=== PATIENT | male | born 1960 | race African-American/Black ===

== ENCOUNTER 2016-06-22 07:36 | Inpatient (IN) ==
[~2016-06-22 07:36] MED LIST: ADENOCARD ONE; CARDIZEM ONE
[2016-06-22] MEDS ORDERED: NS 1,000 ML ONE (07:39)
[2016-06-22] MEDS ORDERED: CARDIZEM IV ONE (07:46)
--- NOTE | 2016-06-22 07:48 | EKG Report ---
Test Performed on : 06/22/2016 07:41:48 AM Test Reason : Chest Pain Blood Pressure : / mmHG Vent. Rate : 105 BPM Atrial Rate : 210 BPM P-R Int : 000 ms QRS Dur : 124 ms QT Int : 350 ms P-R-T Axes : 103 -64 116 degrees QTc Int : 462 ms Atrial flutter. with 2:1 AV conduction. Left anterior fascicular block Left ventricular hypertrophy with QRS widening and repolarization abnormality Cannot rule out Septal infarct , age undetermined Marked ST abnormality, possible anterior subendocardial injury Abnormal ECG When compared with ECG of 22-JUN-2016 07:37, (Unconfirmed) Atrial flutter. has replaced Wide QRS tachycardia. Vent. rate has decreased BY 82 BPM Unconfirmed Result
--- NOTE | 2016-06-22 07:50 | EKG Report ---
Test Performed on : 06/22/2016 07:37:34 AM Test Reason : p rhythm conversion Blood Pressure : / mmHG Vent. Rate : 187 BPM Atrial Rate : 058 BPM P-R Int : 000 ms QRS Dur : 122 ms QT Int : 280 ms P-R-T Axes : 000 -66 112 degrees QTc Int : 494 ms Wide QRS tachycardia. with occasional premature ventricular complexes. Left axis deviation Left ventricular hypertrophy with QRS widening and repolarization abnormality Cannot rule out Septal infarct , age undetermined Marked ST abnormality, possible anterior subendocardial injury Abnormal ECG No previous ECGs available Unconfirmed Result
--- NOTE | 2016-06-22 07:52 | PROVIDER DOCUMENTATION ---
HPI-Chest Pain - General Chief Complaint: Chest Pain Stated Complaint: SVT Time Seen by Provider: 06/22/16 07:43 Source: EMS Allergies/Adverse Reactions: Patient Allergies Allergy/AdvReac Type Severity Reaction Status Date / Time naproxen Allergy Intermediate ABDOMINAL Verified 06/22/16 08:09 PAIN wild dobbins AdvReac Intermediate RASH Verified 06/22/16 08:09 cherries AdvReac Intermediate RASH Uncoded 06/22/16 08:09 Home Medications: Home Medication List Medication Instructions Recorded Confirmed Last Taken Type Hydrocodone Bit/Acetaminophen 1 each PO Q4H PRN 06/22/16 06/22/16 Unknown History [Hydrocodon-Acetaminoph 7.5-325] - History of Present Illness-CP Nature of Presenting Problem: was @ dialysis, had just gotten heparin, had onset of sharp, burning substernal CP, palpitations, did not radiate. Did have SOB, sl nausea. EMS found him to be in SVT, with ventric rate of 90. They were unable to start IV. On arrival, pain was still level of 5, was given Cardizem 20 mg, converted to a flutter, rate of 105. CP ceased Location: reports: substernal Chest Pain Radiation: reports: no radiation Quality of Pain: reports: burning, sharp Onset/Duration: abrupt Timing: still present Context/Activities at Onset: reports: none Modifying Factors: improves with: nothing Associated Symptoms: reports: nausea, shortness of breath. denies: diaphoresis Nitro Today/Relief: no nitro taken today Aspirin Treatment Today: no aspirin today Similar Symptoms Previously?: No Recently Seen Here or By Another Healthcare Provider: Yes (was @ dialysis) Review of Systems - Adult - REVIEW OF SYSTEMS - ADULT Constitutional: reports: no symptoms reported Eyes: reports: no symptoms reported Ears, Nose, Mouth & Throat: reports: no symptoms reported Cardiovascular: reports: see HPI, palpitations Respiratory: reports: see HPI Gastrointestinal: reports: see HPI Genitourinary: reports: no symptoms reported Musculoskeletal: reports: no symptoms reported Integumentary: reports: no symptoms reported Neurological: reports: no symptoms reported Psychiatric: reports: no symptoms reported Endocrine: reports: no symptoms reported Hematologic/Lymphatic: reports: no symptoms reported Allergic/Immunologic: reports: no symptoms reported Past History - Adult - PAST MEDICAL HISTORY-ADULT Review of Records: reports: Medications Reviewed Major Childhood Illnesses: reports: denies history Cardiovascular: reports: HTN Respiratory: reports: asthma, sleep apnea Gastrointestinal: reports: denies history Obstetrical/Gynecological: reports: denies history Genitourinary: reports: dialysis (in past--none now), kidney disease (with h/o failure due to multiple myeloma) Musculoskeletal: reports: denies history Neurological: reports: denies history Endocrine/Immune: reports: Myeloma Other Conditions: reports: denies history - PRIOR SURGERIES/PROCEDURES Surgical/Procedure History: reports: other (stem cell transplant) - SOCIAL HISTORY Smoking: denies Physical Exam-General - PHYSICAL EXAM-ADULT Exam Limited by: was done after conversion Initial Vital Signs Reviewed: Yes - CONSTITUTIONAL General Appearance: appears well, alert, no apparent distress - EYES Eyes: PERRL/EOMI, pink conjunctivae - HEAD, EARS, NOSE, MOUTH & THROAT HENMT: moist mucous membranes, normal ENT inspection, pharynx normal - NECK Neck: full range of motion, supple - RESPIRATORY Respiratory: lungs clear, normal breath sounds, no respiratory distress, no accessory muscle use - CARDIOVASCULAR Cardiovascular: normal peripheral pulses, regular rate, rhythm, no edema - GASTROINTESTINAL (ABDOMEN) Abdominal Exam: non tender, soft - MUSCULOSKELETAL Back Exam: normal inspection, no CVA tenderness, no vertebral tenderness Extremity: normal range of motion, non-tender, normal gait - SKIN Integumentary: normal color, normal turgor, warm/dry - NEUROLOGIC Neurologic: project technician II-XII nml as tested, grossly normal, no motor/sensory deficits - PSYCHIATRIC Psych/Mental Status: normal mood/affect, normal thought content, normal thought process, oriented x 3 Progress - PLAN OF CARE/RESULTS Progress/Plan/Lab Results: Vital Signs - 8 hr 06/22/16 07:30 06/22/16 08:06 06/22/16 08:21 Temperature 97.9 F Pulse Rate 191 H 136 H 136 H Respiratory Rate 23 27 H 23 Blood Pressure 117/88 125/65 121/55 O2 Sat by Pulse Oximetry 98 100 99 06/22/16 08:48 06/22/16 09:27 06/22/16 09:54 Temperature Pulse Rate 109 H 133 H 109 H Respiratory Rate 18 18 20 Blood Pressure 122/66 130/69 111/70 O2 Sat by Pulse Oximetry 98 99 98 06/22/16 10:16 06/22/16 10:29 Temperature Pulse Rate 106 H 110 H Respiratory Rate 20 22 Blood Pressure 126/79 128/75 O2 Sat by Pulse Oximetry 99 Laboratory Results - last 24 hr 06/22/16 06/22/16 06/22/16 07:54 07:54 07:54 WBC 1.85 L RBC 2.13 L Hgb 7.4 L Hct 23.1 L MCV 108.5 H MCH 34.7 H MCHC 32.0 L RDW Std Deviation 16.6 H Plt Count 36 L* MPV 11.0 H Immature Gran % (Auto) 0.0 Neut % (Auto) 58.4 Lymph % (Auto) 23.2 [place] % (Auto) 15.7 H Eos % (Auto) 2.2 Baso % (Auto) 0.5 Immature Gran # (Auto) 0.00 Neut # (Auto) 1.08 L Lymph # (Auto) 0.43 L [place] # (Auto) 0.29 Eos # (Auto) 0.04 Baso # (Auto) 0.01 PT 16.2 H INR 1.50 PTT (Actin FS) 30.5 Sodium 135 L Potassium 4.9 Chloride 92 L Carbon Dioxide 21 L Anion Gap 22 BUN 92 H Creatinine 14.0 H* Estimated GFR/1.73 m2 4 BUN/Creatinine Ratio 7 Glucose 84 Calculated Osmolality 298 Calcium 9.6 Phosphorus 9.5 H Magnesium 2.1 Total Bilirubin 0.37 AST 58 H ALT 46 H Alkaline Phosphatase 50 Creatine Kinase 1343 H Creatine Kinase Index 1.5 CK-MB (CK-2) 19.89 H Troponin T Total Protein 7.7 Albumin 3.6 Globulin 4.1 Albumin/Globulin Ratio 0.9 06/22/16 07:54 WBC RBC Hgb Hct MCV MCH MCHC RDW Std Deviation Plt Count MPV Immature Gran % (Auto) Neut % (Auto) Lymph % (Auto) [place] % (Auto) Eos % (Auto) Baso % (Auto) Immature Gran # (Auto) Neut # (Auto) Lymph # (Auto) [place] # (Auto) Eos # (Auto) Baso # (Auto) PT INR PTT (Actin FS) Sodium Potassium Chloride Carbon Dioxide Anion Gap BUN Creatinine Estimated GFR/1.73 m2 BUN/Creatinine Ratio Glucose Calculated Osmolality Calcium Phosphorus Magnesium Total Bilirubin AST ALT Alkaline Phosphatase Creatine Kinase Creatine Kinase Index CK-MB (CK-2) Troponin T 0.799 H* Total Protein Albumin Globulin Albumin/Globulin Ratio Orders Category Date Time Status Cardiac Monitoring DIRECTED Care 06/22/16 07:44 Active Oxygen Therapy- ED Nursing DIRECTED Care 06/22/16 07:44 Active Saline Loc NOW Care 06/22/16 07:44 Active CBC WITH ELECTRONIC DIFF [HEME] Stat Lab 06/22/16 07:54 Results CK PROFILE [SP CHEM] Stat Lab 06/22/16 07:54 Completed COMPREHENSIVE METABOLIC PANEL [CHEM] Stat Lab 06/22/16 07:54 Completed MAGNESIUM [CHEM] Stat Lab 06/22/16 07:54 Completed PHOSPHORUS [CHEM] Stat Lab 06/22/16 07:54 Completed PROTIME WITH INR [COAG] Stat Lab 06/22/16 07:54 Completed PTT [COAG] Stat Lab 06/22/16 07:54 Completed TROPONIN T Stat Lab 06/22/16 07:54 Completed 0.9% Sodium Chloride Inj [Ns] 1,000 ml Med 06/22/16 07:39 Discontinued .ROUTE As Directed Adenosine [Adenocard] Med 06/22/16 07:31 Discontinued 6 mg .ROUTE .STK-MED ONE Diltiazem 100 mg/Ns [Cardizem 100 mg/Ns] Med 06/22/16 08:04 Active 100 mg in 100 ml IV 5 mg/hr Diltiazem [Cardizem] Med 06/22/16 07:46 Discontinued 20 mg IV NOW ONE Diltiazem [Cardizem] Med 06/22/16 07:31 Discontinued 25 mg .ROUTE .STK-MED ONE EKG [EKG] Stat Ther 06/22/16 07:44 Draft EKG [EKG] Stat Ther 06/22/16 07:44 Draft Result Diagrams: 06/22/16 07:54 06/22/16 07:54 - EKG 1 Time of EKG reading by physician:: 07:37 EKG Read and Signed by:: Rene Underwood EKG Interpretation (*Must complete 3 of following elements*): Abnormal Rate: 187 Rhythm: wide complex tachycardia [place]: left QRS: LVH ST Wave: depressed 2 Time of EKG reading by physician:: 07:41 EKG Read and Signed by:: Rene Underwood EKG Interpretation (*Must complete 3 of following elements*): Abnormal Rate: 105 Rhythm: A flutter QRS: LVH, other (LAFB) ST Wave: depressed (V2-V4) Departure - Departure Time of Disposition Decision: 10:00 DIAGNOSIS: Thrombocytopenia Atrial flutter Qualifiers: Atrial flutter type: atypical Qualified Code(s): I48.4 - Atypical atrial flutter Renal failure Qualifiers: Renal failure chronicity: chronic Chronic kidney disease stage: on chronic dialysis Qualified Code(s): N18.6 - End stage renal disease; Z99.2 - Dependence on renal dialysis Disposition: ADMITTED INPATIENT 09 Certified Medical Emergency: Emergent Condition: Stable Referrals and Follow-Ups: None,PCP [Primary Care Provider] - - Critical Care Note This patient required my direct & personal management of CC.: Yes Total Time (mins): 35 (in room for tx of initial rapid rate, discussion with admitting doctor, lab evaluation) Critical Care Statement: This patient required my direct personal management to treat or rule out processes, the absence of which, could potentiallly result in sudden, clinically significant life or limb threatening deterioration.
[2016-06-22] MEDS: CARDIZEM 100 MG/NS 100 MG/100 ML IVPB IV SCH ×5 (08:17→21:51)
[2016-06-22 08:57] LABS: INR 1.5; PROTIME 16.2 Seconds (9.2-11.7); PTT 30.5 Seconds (22.0-36.0)
[2016-06-22 09:17] LABS: ALBUMIN 3.6 g/dL (3.5-5.0); CALCIUM 9.6 mg/dL (8.8-10.2); MAGNESIUM 2.1 mg/dL (1.5-2.7); POTASSIUM 4.9 mmol/L (3.5-5.1); TOTAL BILIRUBIN 0.37 mg/dL (0.20-1.00); TOTAL PROTEIN 7.7 g/dL (6.3-8.3)
[2016-06-22 09:20] LABS: BASO% 0.5 % (0.0-0.8); EOS# 0.04 X1000 (0.0-0.7); EOS% 2.2 % (0.0-10.0); HEMATOCRIT 23.1 % (42.0-52.0); HEMOGLOBIN 7.4 g/dL (14.0-18.0); LYMPH# 0.43 X1000 (1.2-3.4); LYMPH% 23.2 % (20.5-51.1); MCH 34.7 PG (27-31); MCV 108.5 FL (81-99); MONO# 0.29 X1000 (0.11-0.59); MONO% 15.7 % (1.7-9.3); NEUT% 58.4 % (42.2-75.2); PLT 36 X1000 (130-400); RBC 2.13 XMIL (4.7-6.1)
[2016-06-22 10:26] LABS: CK INDEX 1.5 (0.0-2.5); CK-MB 19.89 ng/mL (0.0-5.0)
[2016-06-22 11:47] LABS: TOTAL IRON 191 ug/dL (53-167)
[2016-06-22 11:56] LABS: HEMOGLOBIN A1C 5.1 % (4.8-6.0)
[2016-06-22 11:58] LABS: FREE T4 1.39 ng/dL (0.93-1.70)
[2016-06-22 12:06] LABS: MANUAL DIFF NEEDED? NO
[2016-06-22 12:23] LABS: UNBOUND IRON < 1 ug/dL (112-346)
--- NOTE | 2016-06-22 12:33 | HISTORY AND PHYSICAL ---
EQUIPMENT TECHNICIAN: Dr. Broderick Stern. ONCOLOGY: Dr. Slava Castro. CHIEF COMPLAINT: Chest pain. Palpitations. HISTORY OF PRESENT ILLNESS: Mr. Odom is a 55-year-old male, with a history of multiple myeloma and ESRD on hemodialysis Monday, Monday, Monday. He presents to the ER today with chest pain that began while in dialysis. He has actually been having some discomfort in his chest over the past 2-3 months. He reports that he had a right and left heart catheterization done last month and that it did not show anything acute. Today while on dialysis he had a gradual onset of midsternal cramping and throbbing. There was no radiation, nausea, vomiting or diaphoresis. He also started having palpitations and was brought to the ER. When he got to the ER he was noted to have a wide complex tachycardia which was promptly cardioverted showing an atrial flutter. He is currently in a 2-1 block on a Cardizem drip but his vitals are stable. He does have some mild discomfort in his chest but much better than it was when he first came. He has had no recent fever, chills, or cough and congestion. He denies any overt abdominal pain. He does report occasional lower extremity edema and orthopnea at times. He is now going to be admitted to the ICU for further treatment and evaluation. PAST MEDICAL HISTORY: 1. Multiple myeloma followed by Dr. Castro. 2. COPD. 3. ESRD on hemodialysis Monday, Monday, Monday. 4. Congestive heart failure. 5. Chronic pain. 6. Chronic anemia, multifactorial. SURGICAL HISTORY: He has had a shunt placement, Port-A-Cath placement for chemotherapy, and a few colonic polyps excised. He has also recently had a right and left heart catheterization. SOCIAL HISTORY: Patient denies tobacco, alcohol or drug use. He is . FAMILY HISTORY: He reports that his maternal grandfather had a permanent pacemaker. His father had pancreatic cancer and his mother has diabetes. REVIEW OF SYSTEMS: Fourteen-point review of systems obtained and found to be negative with the exception of the HPI. HOME MEDICATIONS: [place] 7.5, but otherwise currently being compiled. ALLERGIES: To naproxen and wild cherries. PHYSICAL EXAMINATION: VITAL SIGNS: Blood pressure is 134/87, heart rate 112, respiratory rate 20, O2 saturation 99% on 2 L nasal cannula. GENERAL: This is a well-developed, well-nourished, male, lying in hospital bed. No acute distress. NEUROLOGIC: The patient is awake, alert, oriented. Follows commands without focal deficits. HEENT: Head atraumatic and normocephalic. Pupils are equal, round, reactive to light. Oral mucosa is moist. Trachea is midline. No JVD or carotid bruits. CV: Tachy and regular. S1, S2 is noted. No murmurs. GI: Soft, nondistended, nontender. CHEST: Faint bibasilar crackles. No increased work of breathing. GI: Soft, nondistended, nontender. Bowel sounds positive. EXTREMITIES: With trace edema but the pulses are palpable and diminished. DIAGNOSTIC DATA: WBC 1.85, hemoglobin 7.4, hematocrit 23.1, platelet count 36,000. PT 16.2, INR 1.5. Sodium 135, potassium 4.9, chloride 92, CO2 21, anion gap 22, BUN 92, creatinine 14. Glucose is 84, phosphorus 9.5, magnesium 2.1, bilirubin 0.37. AST 58, ALT 46, alkaline phosphatase 50. CK 1343. CK-MB 19.89. Troponin 0.799. Protein 7.7, albumin 3.6. Chest x-ray has been ordered. ASSESSMENT AND PLAN: 1. Atrial flutter: Rate has been reduced with IV medications. Will admit him to the ICU and consult Cardiology. His normal left heart catheterization is reassuring. We will continue the Cardizem drip and defer rate control and anticoagulation to Cardiology. 2. Elevated cardiac enzymes: In light of a normal left heart catheterization last month, which we will still need to get the report for, his elevated cardiac enzymes are likely secondary to sustained tachycardia on top of chronic kidney disease/ESRD. We will continue to trend his enzymes and consult Cardiology. 3. Pancytopenia: Chronic. We will go ahead and give him a unit of PRBCs now and have another on standby. Consult his data operations leader, and check iron studies. 4. Multiple myeloma: Dr. Castro has been consulted. 5. ESRD on hemodialysis: We will consult Dr. Stern for continued he ESRD treatment and assistance with medical management. 6. Deep vein thrombosis prophylaxis will be provided by anticoagulation of choice via Cardiology. Further recommendations to follow. Dictated by CYNDI Campbell for Yuniel Greenfield MD cc: CYNDI Campbell MD
[2016-06-22] MEDS ORDERED: HEPARIN ONE (14:27)
[2016-06-22] MEDS ORDERED: NS 2,000 ML ONE (14:27)
[2016-06-22] MEDS ORDERED: CORDARONE 150 MG/D5W 150 MG/100 ML IV.SOLN IV ONE (14:46)
[2016-06-22] MEDS ORDERED: NS 2,000 ML MISC PRN (14:46)
[2016-06-22] MEDS ORDERED: HEPARIN IV PRN (14:46)
[2016-06-22] MEDS ORDERED: TIGHT: 0.2 ML/HR MISC PRN (14:46)
[2016-06-22] MEDS ORDERED: CORDARONE 360 MG/D5W 360 MG/200 ML IV.SOLN IV ONE (15:00)
--- NOTE | 2016-06-22 15:26 | CONSULTATION ---
DATE OF CONSULTATION: 06/22/2016 INDICATION: Chest pain. Arrhythmias. HISTORY OF PRESENT ILLNESS: Mr. Odom is a 55-year-old, black male with a history of multiple myeloma and end-stage renal disease normally dialyzes Monday, Monday, Monday. He was in his usual state of health when around 30 minutes prior to dialysis he began having some mild chest discomfort. He presented to dialysis and they hooked him and he was receiving dialysis for around 10-15 minutes. They then checked a set of vitals on him and heart rate was apparently in the 190s and he was referred to the ER. He continued to have a bouts of chest discomfort. In the ER he was administered some adenosine and apparently was able to be diagnosed that he was in atrial flutter. PAST MEDICAL HISTORY: 1. Significant for a history of diastolic heart failure. 2. History of palpitations previously evaluated with CEDs and have not shown any significant abnormalities other than PACs and PVCs. 3. End-stage renal disease currently on hemodialysis Monday, Monday, Monday. 4. Multiple myeloma with apparent recurrence on oral therapy as well as apparent chemotherapy per Dr. Castro. Apparently also receives episodic transfusions for his chronic pancytopenia. SOCIAL HISTORY: Significant for no tobacco, alcohol or illicit drugs. He is . FAMILY HISTORY: He has a maternal grandfather with pacemaker. His father had pancreatic cancer. Mother with diabetes. No early history of coronary disease. REVIEW OF SYSTEMS: A 10 system review of systems is negative except for those things mentioned in HPI. PHYSICAL EXAMINATION: Generally: He is in no acute distress. Pleasant. HEENT: Oropharynx is moist. He has normal dentition. His eye examination shows pink conjunctivae, white sclerae. Neck: Examination shows no obvious thyromegaly or thyroid tenderness. Vital Signs: Show that he has been afebrile. His heart rates are predominantly in the 110s during my examination, blood pressure 117/75. Cardiovascular: He sounds to be in a regular tachycardic rhythm. Currently his telemetry seems to show either a regular 2:1 atrial tach versus a possible very slow 2:1 atrial flutter. He has no lower extremity edema. Chest: Exam sounds relatively clear. He has a somewhat poor inspiratory effort and had significant amount of coughing during my examination. Abdomen: Soft, nontender, nondistended. Skin Exam: Warm and dry throughout without any rashes. Neurological: He is moving all extremities well. Cranial nerves 2-12 are intact without any sensation deficits. Psychiatric: Alert, oriented, pleasant. He has normal mood and affect. PERTINENT DATA: He had an echocardiogram performed in May 2015 demonstrating EFs in the mid to high 40s. This was a myocardial perfusion scan. Shows no evidence of definite inducible ischemia. Reportedly had a cardiac catheterization at the [place] which he says is normal. We are currently pending their records. In May 2015 he had an echocardiogram showing mild left atrial enlargement, mild root enlargement, preserved LV function, moderate LVH. His laboratory data shows a white count of 1.8 which is relatively chronic for him, hematocrit 23.1 which again is chronic for him and platelets of 36,000 which again is chronic for him. His INR is 1.5. His sodium is 135, potassium 4.9. BUN 92, creatinine 14. His cardiac enzymes show a CK at 1343. His index is 1.5. His MB is 19.8, and his troponin is 0.79. His albumin is 3.6. TSH is 1.7 with a free T4 of 1.39. ASSESSMENT: 1. Arrhythmia that seems most likely to be a atrial flutter versus an atrial tach. 2. Elevated cardiac enzymes. 3. Pancytopenia in a patient with multiple myeloma. 4. End-stage renal disease. PLAN: I believe the patient's elevation of his troponin is most likely secondary to supply/demand mismatch which is secondary to the anemia with a coexisting rapid tachycardia. In addition the end-stage renal disease has resulted in elevation of the troponin. The patient is not having any symptoms consistent with ACS and this is again likely a supply/demand mismatch. Reportedly his cardiac catheterization was normal so we will try to obtain those records and that was done roughly 1 month ago. Presently, we will continue him on diltiazem. I will add in amiodarone and hopefully we can cardiovert him overnight. Understandably he is not an anticoagulation candidate secondary to his anemia as well as thrombocytopenia. But if we do cardiovert him within the 24-48 hour period from the onset of his symptoms then we should not be dealing with issues with acute thrombus. The patient is very certain on the onset of his symptoms occurring roughly 30 minutes prior to his dialysis session today. cc: Arik Maciel MD
--- NOTE | 2016-06-22 16:47 | CONSULTATION ---
DATE OF CONSULTATION: 06/22/2016 REASON FOR ADMISSION: Chest pain with palpitations. REASON FOR CONSULTATION: End-stage renal disease with assistance with medical management. REQUESTING PHYSICIAN: CYNDI Rivera. HISTORY OF PRESENT ILLNESS: Mr. Odom is a 55-year-old, male, who is known to our outpatient services for hemodialysis on Monday, Monday, Monday at the [facility]. Patient subsequently had not had any complaints or difficulties in the last week or so after his discharge from [facility] for a cardiac workup. Patient was on dialysis for approximately 15 minutes at which time he stated that he started having a coughing sensation in his throat. He did feel some type of palpitations. Upon evaluation, it was found that he was tachycardic. He was immediately taken off dialysis and was transported via EMS to [facility] Emergency room department. Upon admission, it was found that he had a wide complex tachycardia. They had immediately cardioverted him and placed him on a diltiazem drip. It appears that he is in a questionable 2-1 block while on this Cardizem drip. He is to be admitted to the ICU bed 10. His blood pressure remained stable. He denies any nausea, vomiting, or diarrhea. No recent chest pains until this new onset. States that it is different than the chest pain and discomfort that he has been having for evaluation of workup over the last couple months. He denies any fever or chills. No abdominal cramping. No increased lower extremity swelling. He does state that he does get orthopneic with exertion, otherwise he states that he has actually been feeling better in the last week. PAST MEDICAL HISTORY: Positive for end-stage renal disease with hemodialysis on Monday, Monday, Monday. He has multiple myeloma and is currently being worked up by Dr. Castro. He does receive chemotherapy per port to his chest wall. He has COPD, congestive heart failure. Chronic pain, chronic anemia due to chronic disease. He has osteodystrophy secondary to chronic disease. PREVIOUS SURGICAL HISTORY: He has an AV fistula to the right forearm. He still has catheters in place. He has a Port-A-Cath in place to the left chest wall. He has colonic polyps removed in the past. He has also had a history of EGD and colonoscopy. He has also had a recent right and left heart catheterization approximately 2 weeks ago at [facility]. SOCIAL HISTORY: He is . His is currently at the bedside. He denies any tobacco, alcohol or illicit drug use. FAMILY HISTORY: Positive for maternal grandfather with a permanent pacemaker and heart disease. Father had pancreatic cancer and mother has diabetes. CURRENT ALLERGIES: To naproxen and wild cherries. HOME MEDICATIONS: Currently being reviewed. He is currently on a diltiazem drip. He has received hydrocodone. REVIEW OF SYSTEMS: Times 10 with pertinent positives listed above in the HPI. VITAL SIGNS: Temperature 98.1, blood pressure 104/75, heart rate is 120, respirations are 16. He is saturating at 100%. He is on O2 at 2 L nasal cannula. LABS: Sodium 135, potassium 4.9, chloride 92, CO2 of 21, BUN 92, creatinine 14. Glucose 84. Anion gap at 22, calcium 9.6, phosphorus 9.5, magnesium 2.1. Albumin of 3.6. He has elevated troponins. His CK-MB is elevated. He has a CK creatine kinase that is 1.5. He is to have a series. His total bilirubin 0.37, AST 58, ALT 46. White count 1.85, hemoglobin 7.4, hematocrit 23.1, with a platelet count of 36. His iron is 191. Total iron binding capacity and iron percent saturation have not been recorded. He has a B12 of 394, folate 6.7. His TSH is 1.74. Free T4 of 1.39. PHYSICAL EXAMINATION: General: This is a 55-year-old, male. He is currently sitting on the side of the bed. He is in mild distress secondary to cardioversion and increased work of breathing secondary to tachycardic rhythm. He denies any pain at this time. Skin: Warm and dry. HEENT: Normocephalic, atraumatic. Conjunctiva is pink. He has CARLOS ALBERTO. Mucous membranes are dry. Neck: Supple. Trachea midline. No JVD. Cardiovascular: He remains tachycardic. He appears to be in a 2-1 flutter or a stable atrial fibrillation, but he does remain tachycardic. He is on a diltiazem drip. Lungs: These are clear to auscultation anteriorly. He is on O2. Equal excursion. Abdomen: Round, soft, nontender. Positive bowel sounds. Genitourinary: Not inspected. Minimal void with dialysis assist. Extremities: He has an AV fistula to the right forearm. He has a port to his left upper chest wall. Extremities have no edema. No clubbing or cyanosis. Neurological: He is alert and oriented x3. ASSESSMENT AND PLAN: 1. End-stage renal disease. Patient is due for his routine dialysis treatment today. We will have them remove his old lines and plan for dialysis in the ICU secondary to his having a drip in place and tachyarrhythmia. We will place him on a 2K bath. He is to dialyze for 3.5 hours. We will attempt to only pull him to his dry weight. 2. Electrolytes and acid-base balance. These do remain stable. 3. Anemia. This is low. We will continue to monitor. He does have thrombocytopenia with a platelet count of 36. Dr. Castro has been consulted. 4. Tachyarrhythmia with what appeared to be wide complex ventricular rhythm. Patient tolerated cardioversion. He is on a diltiazem drip. Cardiology has been consulted. I would to thank you for allowing us to follow with this patient. Seen, data reviewed, discussed with Marques Woodruff on 06/22/16. I agree with the above assessment and plan of care. rg Dictated by CYNDI Pabon for Broderick Stern MD cc: CYNDI Pabon MD [facility]
[2016-06-22 16:50] LABS: CK INDEX 1.8 (0.0-2.5); CK-MB 22.54 ng/mL (0.0-5.0)
[2016-06-22] MEDS ORDERED: CORDARONE 540 MG in D5W 289.2 ML IV ONE (21:00)
[2016-06-22 21:42] LABS: CK INDEX 1.7 (0.0-2.5); CK-MB 19.7 ng/mL (0.0-5.0)
[2016-06-23] MEDS: CARDIZEM 100 MG/NS 100 MG/100 ML IVPB IV SCH ×4 (02:53→22:32)
[2016-06-23 06:01] LABS: AGAP 18; ALBUMIN 3.4 g/dL (3.5-5.0); BUN 82 mg/dL (8-22); CALCIUM 9.1 mg/dL (8.8-10.2); CHLORIDE 90 mmol/L (98-107); COSMO 289; HDL 45 mg/dL (35-55); LDL 76 mg/dL; POTASSIUM 5.1 mmol/L (3.5-5.1); SODIUM 132 mmol/L (136-145); TCO2 24 mmol/L (25-35); TRIGLYCERIDES 97 mg/dL (39-160); VLDL 19 mg/dL
[2016-06-23 06:14] LABS: HEMOGLOBIN 6.7 g/dL (14.0-18.0); MCH 35.3 PG (27-31); MCHC 31.9 g/dL (33-37); MCV 110.5 FL (81-99); MPV 10.6 FL (7.4-10.4); RBC 1.9 XMIL (4.7-6.1)
--- NOTE | 2016-06-23 07:24 | Diag Imaging Result Doc PS360 ---
EXAM: CHEST-PORTABLE HISTORY: afib COMPARISON: 04/14/2015 FINDINGS: Heart size is upper range of normal. There is subsegmental atelectasis at the lung bases. There is possibly mild central vascular congestion. There is no pleural effusion or pneumothorax identified. Central venous catheter remains in place. IMPRESSION: Basilar subsegmental atelectasis. Possible mild central vascular congestion. Electronically signed by Joshua Duffy 06/23/2016 7:22 AM
[2016-06-23] MEDS ORDERED: NS 2,000 ML MISC PRN (07:52)
[2016-06-23] MEDS ORDERED: HEPARIN IV PRN (07:52)
[2016-06-23] MEDS ORDERED: TIGHT: 0.2 ML/HR MISC PRN (07:52)
[2016-06-23] MEDS: FOLIC ACID PO SCH (08:03)
[2016-06-23] MEDS ORDERED: NS 2,000 ML ONE (08:31)
[2016-06-23] MEDS ORDERED: HEPARIN ONE (08:31)
--- NOTE | 2016-06-23 11:41 | PROGRESS NOTE ---
DATE: 06/23/2016 TIME SEEN: 0755. SUBJECTIVE: Mr. Odom is resting quietly in a chair. He states it is difficult for him to lie down. He denies any chest pain or increased work of breathing, states that he does not have any extra swelling on board. VITAL SIGNS: His most recent vital signs: Temperature is 98.1, blood pressure 125/72, heart rate 117, respirations are 20. He is on room air. Last recorded saturation is 97%. He has had 1448 in. He has had 2 L out on dialysis yesterday. LABS: Sodium 132, potassium 5.1, chloride 90, CO2 of 24, BUN 82, creatinine 12 , glucose 96, anion gap 18. Calcium 9.9., phosphorus 9.1, albumin 3.4. His white count is 1.85, hemoglobin 6.7, hematocrit 21, with a platelet count of 42. He continues with positive troponins. PHYSICAL EXAMINATION: General: This is a 55-year-old male who is sitting in a chair. He is in no acute distress. Skin: Warm and dry. HEENT: Normocephalic , atraumatic. Conjunctiva is pink. He is CARLOS ALBERTO. Mucous membranes are moist. Neck: Supple, trachea midline, no JVD. Cardiovascular: He remains tachycardic with questionable 2:1 flutter noted on the monitor. He remains on a diltiazem drip. Lungs: Clear to auscultation anterior. Equal excursion. He remains on room air. Abdomen: Round, soft, nontender. Positive bowel sounds. Genitourinary: Not inspected. Minimal void with dialysis assist. Extremities: AV fistula to the right upper forearm with a port to the left chest wall. Continues with no edema, no clubbing or cyanosis. Neurological: Alert and oriented x3. ASSESSMENT AND PLAN: 1. End-stage renal disease. The patient had his routine dialysis treatment yesterday after arrival to the ICU. They were able to pull 2 L for ultrafiltration. Secondary to patient having a drop in his hemoglobin, we will plan for dialysis for 2-1/2 hours and then attempt to transfuse 2 units of packed red blood cells. We will perform ultrafiltration only and then plan for his routine dialysis in the a.m. 2. Electrolytes and acid-base balance. These do remain stable. 3. Anemia. As mentioned, the patient is planned for 2 units transfusion of packed red blood cells while on dialysis. 4. Tachyarrhythmia. It is noted that patient may possibly have a OUMOU performed today with questionable cardioversion. More clearly a. flutter with variable block. On amio. stormy I would like to thank you for allowing us to follow with this patient. Dictated by CYNDI Pabon for Broderick Stern MD Seen, data reviewed, discussed with Marques Woodruff on 06/23/16. I agree with the above assessment and plan of care. stormy cc: CYNDI Pabon MD [facility]
[2016-06-23 13:57] LABS: INR 1.43; PROTIME 15.4 Seconds (9.2-11.7)
[2016-06-23] MEDS ORDERED: ADENOCARD ONE (14:08)
[2016-06-23] MEDS ORDERED: ADENOCARD IV ONE (14:15)
[2016-06-23] MEDS: CORDARONE 360 MG/D5W 360 MG/200 ML IV.SOLN IV SCH (15:01)
--- NOTE | 2016-06-23 15:01 | PROGRESS NOTE ---
DATE: 06/23/2016 SUBJECTIVE: Mr. Odom reports he is doing well. He went through dialysis today, he got 2 units of blood and feels better with that being administered. OBJECTIVE: PHYSICAL EXAMINATION: Vital Signs: He is afebrile. His heart rates during my examination were in the 100s to 110s. He is afebrile, blood pressure 102/62. General: No acute distress. Cardiovascular: She sounds to be in a regular rhythm, running around the 110s. No murmurs. Trace lower extremity edema. Chest: Clear bilaterally. No increased work of breathing. Abdomen: Soft, nontender. PERTINENT DATA: White count 1.8, hematocrit 21, platelet count is 42,000. Sodium 132, potassium 5.1, BUN 82, creatinine 12. ASSESSMENT: 1. Atrial flutter. 2. End-stage renal disease. 3. Pancytopenia. PLAN: We will continue him on diltiazem and amiodarone for now. We will likely proceed with cardioversion in the morning considering he just got 2 units of blood that will likely assist with his ability to stay in sinus rhythm. cc: Arik Maciel MD
--- NOTE | 2016-06-23 17:07 | PROGRESS NOTE ---
DATE: 06/23/2016 SUBJECTIVE: I saw Mr. Odom very early this morning. He was getting his dialysis and was also getting blood transfusion during the dialysis session. According to him, he was doing a whole lot better. He did not have any chest pain, any shortness of breath. OBJECTIVE: Vitals: Blood pressure at the time was 101/72, pulse 81. Respiration was 18, temperature is 98.4. General exam: Mr. Odom is a 55-year-old, male. He was sitting up in the chair and was not in any distress. HEENT: Mucosa was pink and moist. Anicteric. Acyanotic. Neck: Supple. Chest: Air entry bilaterally reduced. There are a few bibasilar crepitations. Cardiovascular: Regular rate and rhythm. Abdomen: Soft. Extremities: About 1+ pedal edema. 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 The patient was getting dialysis via fistula on the left arm. LABORATORY DATA: WBC was 1.85, hemoglobin is 6.7, platelet count of 42. Sodium 132, potassium 5.1, chloride 90, bicarb is 24. ASSESSMENT: 1. Atrial fibrillation/atrial flutter. The patient has been evaluated by Cardiology. Changes have been done to his medications. Currently in rate control. 2. Elevated troponins, likely due to demand ischemia. 3. Pancytopenia. Most likely due to underlying malignancy. 4. History of multiple myeloma. Patient follows up with Dr. Castro. 5. End-stage renal disease. 6. Anemia, which has worsened. Patient is getting 2 units of packed red blood cells. PLAN: In general, I think Mr. Odom is doing a lot better. He will continue with the amiodarone drip. Also folic acid and he is getting a blood transfusion. cc: Yuniel Greenfield MD
[2016-06-23] MEDS: NORCO-7.5 PO PRN (23:36)
[2016-06-24] MEDS ORDERED: NEO-SYNEPHRINE 50 MG in NS 250 ML IV SCH (01:30)
[2016-06-24] MEDS: CORDARONE 360 MG/D5W 360 MG/200 ML IV.SOLN IV SCH (01:46)
[2016-06-24] MEDS: CARDIZEM 100 MG/NS 100 MG/100 ML IVPB IV SCH (04:49)
--- NOTE | 2016-06-24 05:16 | EKG Report ---
Test Performed on : 06/23/2016 2:11:23 PM Test Reason : Blood Pressure : / mmHG Vent. Rate : 117 BPM Atrial Rate : 117 BPM P-R Int : 096 ms QRS Dur : 106 ms QT Int : 390 ms P-R-T Axes : 000 -50 102 degrees QTc Int : 544 ms Sinus tachycardia. with short ND Left anterior fascicular block Left ventricular hypertrophy with repolarization abnormality ST elevation, consider inferior injury or acute infarct Prolonged QT Consider right ventricular involvement in acute inferior infarct Abnormal ECG When compared with ECG of 22-JUN-2016 07:41, Sinus rhythm. has replaced Atrial flutter. No significant change was found Confirmed by Paco MCRAE, Rodríguez Dumas ([id number]) on 06/24/2016 3:29:23 PM
[2016-06-24 05:29] LABS: HEMATOCRIT 27.8 % (42.0-52.0); HEMOGLOBIN 9.1 g/dL (14.0-18.0); MCH 34.2 PG (27-31); MCHC 32.7 g/dL (33-37); MCV 104.5 FL (81-99); RBC 2.66 XMIL (4.7-6.1)
[2016-06-24 05:33] LABS: RETIC% 2.5 % (0.8-2.1); RETIC-HE 41.3 PG (28.2-36.6)
[2016-06-24 05:57] LABS: ALBUMIN 3.5 g/dL (3.5-5.0); CALCIUM 9.1 mg/dL (8.8-10.2); POTASSIUM 5.1 mmol/L (3.5-5.1)
--- NOTE | 2016-06-24 09:35 | PROGRESS NOTE ---
DATE: 06/24/2016 SUBJECTIVE: Mr. Odom feels better than yesterday. He was sitting up in a chair in ICU. He does not feel any palpitations. No chest pain. He is breathing comfortably. OBJECTIVE: He remains afebrile. Temperature 97.1 degrees, pulse 94, respirations 21, blood pressure 114/63. Pupils are equal, round. Lungs are clear in all lung wiley. Cardiovascular: Regular rhythm and rate without murmur or S3. Abdomen is soft. Skin is warm and dry. Urine output 1800 mL. LABORATORY DATA: White count 2360, hematocrit 27, platelet count 49,000. Sodium 133, potassium 5.1, chloride 90. BUN 105, creatinine 14.1. Troponin was 0.878 yesterday. CPK elevated above a 1000. ASSESSMENT AND PLAN: 1. Atrial fibrillation/atrial flutter. The patient has been evaluated by cardiology. Rate under control. 2. Elevated troponin is likely due to demand ischemia. 3. Pancytopenia most likely due to underlying malignancy. 4. History of multiple myeloma followed by Dr. Castro. 5. End-stage renal disease. 6. Anemia. The patient got 2 units of packed red blood cells. Proceed with cardioversion per cardiology. Review of labs. I do not see any change. He is on amiodarone drip. He is on diltiazem drip as well. Folic acid 1 mg a day. Hydrocodone 7.5 q.4 hours p.r.n. Adenocard was given yesterday in an attempt to convert. His lab from this morning: Creatinine 14.1. The patient has end-stage renal disease, on hemodialysis Monday, Wednesdays, and Fridays. He may get dialysis today. Volume seems to be controlled. Electrolytes seem to be controlled. Chronic anemia, multifactorial. cc: Ovi Rios MD
[2016-06-24] MEDS ORDERED: DIPRIVAN 1% ONE (10:57)
--- NOTE | 2016-06-24 11:01 | OPERATIVE NOTE ---
PROCEDURE DATE: 06/24/2016 PROCEDURE PERFORMED: Cardioversion. INDICATIONS FOR PROCEDURE: The patient was in atrial flutter within 48 hours onset. CONSENT: Informed consent was obtained from the patient. ANESTHESIA: Anesthesia was present, and the patient was given anesthesia with propofol. Please see detailed anesthesia records. PROCEDURE IN DETAIL: The patient was cardioverted to sinus rhythm with 50 joules synchronized cardioversion; however, the patient had significant bradycardia requiring 0.5 mg of atropine that was given intravenously. The patient is in sinus rhythm at a rate of 50 beats per minute. cc: Abrahan Mak MD
--- NOTE | 2016-06-24 11:08 | EKG Report ---
Test Performed on : 06/24/2016 10:52:11 AM Test Reason : POST CARDIOVERSION Blood Pressure : / mmHG Vent. Rate : 046 BPM Atrial Rate : 046 BPM P-R Int : 162 ms QRS Dur : 128 ms QT Int : 490 ms P-R-T Axes : 000 -63 104 degrees QTc Int : 428 ms Sinus bradycardia. Left axis deviation Left ventricular hypertrophy with QRS widening and repolarization abnormality Abnormal ECG When compared with ECG of 23-JUN-2016 14:11, (Unconfirmed) [place] interval has increased Vent. rate has decreased BY 71 BPM QRS duration has increased Confirmed by Rodríguez Antonio MD ([id number]) on 06/24/2016 3:32:05 PM
[2016-06-24] MEDS ORDERED: LR 1,000 ML ONE (11:53)
--- NOTE | 2016-06-24 11:56 | CONSULTATION ---
DATE OF CONSULTATION: 06/23/2016 ADMITTING PHYSICIAN: Yuniel Greenfield MD REQUESTING PHYSICIAN: Yuniel Greenfield MD AUTOMATION TECHNOLOGIST: Broderick Stern MD ONCOLOGIST: Slava Castro MD CHIEF COMPLAINT: Chest pain and palpitations. HISTORY OF PRESENT ILLNESS: Mr. Odom is a 55-year-old male, well known to Dr. Castro with a history of multiple myeloma currently on EMPLICITI and Revlimid with his last dose being 06/16/2016. Additionally the patient has a history of end-stage renal disease on hemodialysis, COPD, congestive heart failure, chronic pain and chronic anemia. The patient presented to [facility] Emergency Department secondary to chest pain and palpitations that began while he was being dialyzed. He reports that he has had intermittent pain over the last 2-3 months. The patient had a right and left heart catheterization last month that was negative for any findings. Upon presentation to [facility] the patient was noted to have a wide complex tachycardia which was cardioverted showing atrial flutter. The patient was begun on a Cardizem drip and has had improvement in his rate. Current rate is 117. The patient does continue to complain of some mild chest discomfort but denies any palpitations at this time. He has no shortness of breath. His oxygen saturation is 97% on room air. We are consulted to follow along as he is on ongoing chemotherapy. PAST MEDICAL HISTORY: 1. Multiple myeloma. 2. COPD. 3. End-stage renal disease. 4. Congestive heart failure. 5. Chronic pain. 6. Chronic anemia. PAST SURGICAL HISTORY: 1. Shunt placement. 2. Port-A-Cath placement. SOCIAL HISTORY: The patient does not use tobacco, alcohol or illicit drugs. He is . FAMILY HISTORY: Significant for pancreatic cancer in the patient's father. MEDICATIONS ON ADMISSION: 1. Aspirin 81 mg daily. 2. Hydralazine. 3. Imdur. 4. [place] 5 mg/325 mg. 5. Sodium bicarbonate. 6. Zofran. 7. EMPLICITI. 8. Revlimid. ALLERGIES: Naproxen and while cherries. REVIEW OF SYSTEMS: A 14 point review of systems was obtained and is negative except as mentioned in HPI. PHYSICAL EXAMINATION: General: Mr. Odom is a very pleasant, 55-year-old male, sitting up in a chair in no immediate distress. Vital Signs: Temperature 98.1, blood pressure 125/72, heart rate 117, respirations are 20, O2 saturation 97% on room air. HEENT: Normocephalic, atraumatic. Mucous membranes are pale and somewhat dry. Sclerae is anicteric. Extraocular movements intact. Neck: Supple. Lungs: Clear to auscultation bilaterally. Chest expansion is equal bilaterally. Cardiovascular: S1, S2 is heard without murmur rub or gallop. The patient is tachycardic. Abdomen: Soft, nondistended, nontender. Bowel sounds positive in all quadrants. No rebound or guarding noted. Extremities: Without clubbing or cyanosis. He does have 3+ bilateral lower extremity edema. Dermatologic: No rashes, bruises or lesions. Neurologic: The patient is awake, alert, and oriented x3. He has no focal motor deficit at this time. LABORATORY DATA: Hemoglobin 6.7, hematocrit 21.0, white blood cell count 1.85, platelets 42,000. Sodium 132 potassium 5.1, chloride 90, CO2 is 24, BUN 82, creatinine 12.0 and glucose is 96, calcium 9.1, phosphorus 9.1. IMAGING STUDIES: Chest x-ray reveals bibasilar atelectasis with questionable mild central vascular. ASSESSMENT AND PLAN: 1. Multiple myeloma currently on cycle 1 dose 8 of EMPLICITI and Revlimid. The patient's last treatment was 06/16/2016. We will hold any further treatment until patient's acute illness has past. 2. End-stage renal disease, on hemodialysis. The patient has undergone dialysis today. He will continue his normal schedule of Monday, Monday, Monday dialysis. 3. Chronic obstructive pulmonary disease stable. Oxygen saturation is 97% on room air. 4. Congestive heart failure which is stable. The patient does have positive 3+ bilateral lower extremity edema. No proBNP has been obtained at this time. 5. Anemia/pancytopenia. The patient is scheduled for packed red blood cell transfusion at this time. Platelet count is 42,000. The patient denies any bleeding or easy bruising. We will follow complete blood count. 6. Atrial flutter. Currently on Cardizem with good rate control. Heart rate is 117, at this time. 7. Elevated cardiac enzymes. Cardiology is currently following with workup in progress We will follow along with you and make further recommendations pending outcomes. The above reflects the history exam, assessment and plan of Dr. Castro. Dictated by: CYNDI Ricardo cc: MD Broderick Mota MD Sammy Becdach, MD Charles L. McCain, MD
[2016-06-24] MEDS: CORDARONE PO SCH ×2 (14:09→21:29)
[2016-06-24] MEDS: FOLIC ACID PO SCH (14:10)
--- NOTE | 2016-06-24 14:30 | PROGRESS NOTE ---
DATE: 06/24/2016 SUBJECTIVE: He anticipates cardioversion today. He is feeling better. He is awake, alert, sitting up. No shortness of breath. OBJECTIVE: Vital Signs: Blood pressure 112/59, heart rate 53, respirations 22, afebrile. Intake 3 L. Output 3.3 L. PHYSICAL EXAM: No acute distress.Skin: Warm and dry. HEENT: Conjunctivae are pink. Neck: Neck veins are not distended. Heart: Irregular. Lungs: Have equal breath sounds. No crackles or wheezes. Abdomen: Soft, nontender. Bowel sounds present. Extremities: Have 2+ edema. No clubbing or cyanosis. IMPRESSION: 1. End-stage kidney disease. He will have his next dialysis planned for tomorrow. 2. Electrolytes/acid base. Acceptable. 3. Atrial flutter with a variable block. For cardioversion today. 4. Anemia. Improved following transfusion. cc: Broderick Stern MD
[2016-06-24] MEDS ORDERED: ATROPINE SYRINGE IV ONE (19:00)
[2016-06-24] MEDS ORDERED: TESSALON PO PRN (21:19)
[2016-06-25] MEDS: MUCINEX PO SCH ×3 (04:45→20:24)
[2016-06-25 06:59] LABS: HEMATOCRIT 26.8 % (42.0-52.0); HEMOGLOBIN 8.8 g/dL (14.0-18.0); MCH 33.5 PG (27-31); MCHC 32.8 g/dL (33-37); MCV 101.9 FL (81-99); MPV 10.6 FL (7.4-10.4); RBC 2.63 XMIL (4.7-6.1)
[2016-06-25 07:23] LABS: ALBUMIN 3.5 g/dL (3.5-5.0); CALCIUM 8.9 mg/dL (8.8-10.2); POTASSIUM 5.5 mmol/L (3.5-5.1)
[2016-06-25] MEDS ORDERED: TIGHT: 0.2 ML/HR MISC PRN (08:22)
[2016-06-25] MEDS ORDERED: NS 2,000 ML MISC PRN (08:22)
[2016-06-25] MEDS ORDERED: HEPARIN IV PRN (08:22)
[2016-06-25] MEDS: CORDARONE PO SCH ×2 (08:38→20:23)
[2016-06-25] MEDS: FOLIC ACID PO SCH (08:40)
[2016-06-25] MEDS: NORCO-7.5 PO PRN ×3 (08:44→20:28)
[2016-06-25] MEDS ORDERED: NS 2,000 ML ONE (09:35)
[2016-06-25] MEDS ORDERED: HEPARIN ONE (09:35)
--- NOTE | 2016-06-25 11:59 | PROGRESS NOTE ---
DATE: 06/25/2016 SUBJECTIVE: Mr. Odom seems to be doing well. He has maintained sinus rhythm in the last 24 hours since his cardioversion. PHYSICAL EXAMINATION: He is afebrile. Heart rate is 67, blood pressure 124/68. General: No acute distress. Cardiovascular: He sounds to be in a regular rate and rhythm. Telemetry confirms he is in sinus. He has 1+ bilateral lower extremity edema. Chest: Sounds clear to auscultation bilaterally. He has no increased work of breathing. Abdomen: Soft, nontender, nondistended. No obvious organomegaly. Skin Exam: Warm and dry throughout. PERTINENT DATA: White count 1.9, hematocrit 26.8, platelet count 246,000. Sodium 130, potassium 5.5. His BUN is 130 with a creatinine of 16.3. ASSESSMENT: 1. Atrial fibrillation. 2. End-stage renal disease. 3. Multiple myeloma. PLAN: I will continue him on the b.i.d. dosing of amiodarone through the weekend. On Monday morning I have initiated 200 mg daily of amiodarone. From my standpoint, the patient can be discharged home from a cardiovascular standpoint. Please contact us with any other further questions. Again the patient is not an anticoagulation candidate secondary to his issues with multiple myeloma and pancytopenia. cc: Arik Maciel MD
[2016-06-25] MEDS: DECADRON PO SCH ×2 (12:06→20:24)
[2016-06-25] MEDS: NEURONTIN PO SCH ×2 (12:06→17:03)
--- NOTE | 2016-06-25 13:30 | PROGRESS NOTE ---
DATE: 06/25/2016 SUBJECTIVE: Today, Mr. Odom refers to be doing a little better. He continues to have some cough and whitish expectoration. He also refers that his lower extremities are getting weaker and weaker, and he is not able to move them at all. The patient reports not feeling very well when he is going to use the restroom. OBJECTIVE: Vital Signs: Blood pressure is 124/64, pulse of 67, respiration is 22, temperature 97.1 degrees. On general exam, Mr. Odom is a 55-year-old -P[place]deinig male. He was sitting up in the chair not seemingly distress. HEENT: Mucosa is pink and moist. Anicteric. Acyanotic. Neck is supple. Chest: Air entry is bilaterally reduced. There are bilateral posterior coarse crepitations. Cardiovascular: Regular rate and rhythm. Abdomen is soft, distended, nontender. Extremities: About 2 to 3+ pedal edema in lower extremities, kind of cold. 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 The patient has normal speech. Power in the lower extremities. The right is about 3+/5; the left is about 3-/5. The patient is slightly able to lift the right lower extremity against gravity. He cannot lift the left at all without assistance. Sensation also seems to be impaired with vibration sense and pin prick sensation all the way to the lower abdomen. LABORATORY DATA: WBC is 1.98, hemoglobin is 8.8, platelet count of 46,000. Chemistry: Sodium is 130, potassium is 5.9, chloride is 89, bicarb is 19. Of note, the patient had cardioversion yesterday. ASSESSMENT: 1. Atrial fibrillation/atrial flutter with rapid ventricular rate on presentation. The patient is status post cardioversion. I understand 50 joules of electricity was applied. After the procedure, the patient went bradycardic and atropine was given. Currently, he is in sinus rhythm with a rate of about 73. He is not on any drips. He is currently on amiodarone 400 b.i.d. 2. Elevated troponins on admission likely due to demand ischemia. Patient denies any chest pain. 3. Pancytopenia likely due to underlying malignancy with bone marrow infiltration. 4. History of multiple myeloma. 5. Lower extremity weakness with sensory deficits. 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 He recently did an MRI at [facility] in [place], so we will request the report. Until then, I will put the patient on Decadron 4 mg q 8. The patient is also being followed by Heme-Onc, so we will await their evaluation on this. 6. Fluid overload likely due to end-stage renal disease. I also suspect the patient probably has underlying congestive heart failure since a myocardial perfusion done in 2016 actually showed an ejection fraction of about 48%. There have not been any documented echo here since 2014. I will request an echo to see how his heart function is. cc: Yuniel Greenfield MD MTDD
--- NOTE | 2016-06-25 17:35 | PROGRESS NOTE ---
DATE: 06/25/2016 SUBJECTIVE: He is on dialysis currently. No new complaints. OBJECTIVE: Vital Signs: Blood pressure 132/72, heart rate 69, respiration 21, afebrile. General Appearance: No acute distress. Skin: Warm and dry. Heart: Regular, mildly bradycardic. Lungs: Have equal breath sounds. No crackles. Abdomen: Soft, nontender. Bowel sounds present. Extremities: Have 2+ edema. No clubbing or cyanosis. LABORATORY DATA: Sodium 130, potassium 5.5, chloride 89, bicarbonate 19, BUN 130, creatinine 16.3. IMPRESSION: 1. End-stage kidney disease. He is currently receiving his routine dialysis treatment using a 2 potassium bath. 2. Acid-base: Mild metabolic acidosis that will be addressed with dialysis today. 3. Atrial flutter with variable block. Currently in sinus rhythm following cardioversion. He is on amiodarone. 4. Anemia. He is transfusion dependent and had a transfusion of 2 units earlier this hospital stay. Hemoglobin is trending down but does not meet criteria for treatment today. cc: Broderick Stern MD
[2016-06-26 04:08] LABS: MANUAL DIFF NEEDED? NO
[2016-06-26 04:18] LABS: BASO% 0.5 % (0.0-0.8); EOS# 0.01 X1000 (0.0-0.7); EOS% 0.5 % (0.0-10.0); HEMATOCRIT 26.7 % (42.0-52.0); HEMOGLOBIN 8.7 g/dL (14.0-18.0); LYMPH# 0.31 X1000 (1.2-3.4); LYMPH% 14.8 % (20.5-51.1); MCH 33.9 PG (27-31); MCHC 32.6 g/dL (33-37); MCV 103.9 FL (81-99); MONO# 0.13 X1000 (0.11-0.59); MONO% 6.2 % (1.7-9.3); MPV 10.3 FL (7.4-10.4); PLT 40 X1000 (130-400); RBC 2.57 XMIL (4.7-6.1)
[2016-06-26 04:56] LABS: CALCIUM 8.7 mg/dL (8.8-10.2); POTASSIUM 5.3 mmol/L (3.5-5.1)
[2016-06-26] MEDS: DECADRON PO SCH ×3 (05:32→23:49)
[2016-06-26] MEDS: NORCO-7.5 PO PRN (05:35)
--- NOTE | 2016-06-26 07:37 | Diag Imaging Result Doc PS360 ---
EXAM: CHEST-PORTABLE HISTORY: dyspnea TECHNIQUE: AP portable at 0500 COMMENT: There is lingular and right lower lobe atelectasis. This has been present at the time the previous study of 06/23/2016. Otherwise has been no significant change. IMPRESSION: Borderline cardiomegaly and bilateral atelectasis. Electronically signed by Hardy Diaz 06/26/2016 7:35 AM
[2016-06-26] MEDS: FOLIC ACID PO SCH (08:26)
[2016-06-26] MEDS: MUCINEX PO SCH ×2 (08:26→23:50)
[2016-06-26] MEDS: NEURONTIN PO SCH ×3 (08:26→18:52)
[2016-06-26] MEDS: CORDARONE PO SCH ×2 (08:26→23:49)
--- NOTE | 2016-06-26 10:35 | PROGRESS NOTE ---
DATE: 06/26/2016 SUBJECTIVE: Today, Mr. Odom refers to be doing almost the same. No acute changes overnight. He continues to have difficulty to move his lower extremities. PHYSICAL EXAMINATION: Vital Signs: Blood pressure is 128/70, pulse of 65, respirations are 18, temperature is 97.9 degrees. General Examination: Mr. Odom is a 55-year- old, male. He is in bed, no seemingly distress. HEENT: Mucosa is pink and moist. Anicteric and acyanotic. Neck: Neck is supple. Chest: Good air entry. Some bibasilar coarse crepitations. Cardiovascular: Regular rate and rhythm. There is no murmur. No rubs. Abdomen: Soft, distended but nontender. Extremities: About 2+ pedal edema. The lower extremities feel cold. 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 Musculoskeletal: Lower extremity still has difficulty to be lifted against gravity. LABORATORY DATA: WBC is 2.1, hemoglobin is 8.7, platelet count of 40,000. Chemistry is reviewed. Sodium is 136, potassium is 5.3, chloride is 93, bicarb is 23, creatinine is 10.5. ASSESSMENT: 1. Atrial fibrillation/atrial flutter with rapid ventricular response on presentation. Patient is status post OUMOU with electrical cardioversion. Currently remaining in sinus rhythm. 2. Elevated troponins on admission, likely due to demand ischemia from tachyarrhythmia. 3. Pancytopenia, likely due to underlying malignancy with bone marrow infiltration. 4. History of multiple myeloma. 5. Lower extremity weakness with some sensory deficit, suspicious for possible cord lesion from the multiple myeloma. The patient underwent an MRI recently. We are still pending the report. For now, he will be on Decadron and will be waiting hematology/ oncology evaluation. 6. Fluid overload. Patient gets dialysis. 7. Endstage renal disease, on hemodialysis via a fistula in the left forearm. 8. The patient also has a port on the left anterior chest wall. PLAN: In general, I think Mr. Odom is stable. We are going to transfer him from the ICU to a regular floor. He is currently undergoing echocardiogram. We will be pending on the results on that. We also will be pending the report on the on the MRI. However, if hematology sees him and they think that does has been his normal baseline, we will be discharging him then tomorrow. [facility] He did have a same complain of his lower back. CT of the back was unremarkable. Will be pending the MRI from [facility] [place]. IF same to the CT report from [place] then we can discontinue the steroids and discharge patient. cc: Yuniel Greenfield MD MTDD
--- NOTE | 2016-06-26 16:35 | ECHO REPORT ---
ORDER DATE: 06/25/2016 INDICATION: Multiple myeloma. End-stage renal disease. Atrial fibrillation. FINDINGS: 1. Right atrium is moderately enlarged at 5 cm. 2. Mild to moderate tricuspid regurgitation. The RV systolic pressure is 60 suggesting pulmonary hypertension. 3. Normal RV size and systolic function. 4. Mild pulmonic insufficiency. 5. Mild left atrial enlargement at 4.5 cm. 6. No mitral valve prolapse. There is moderate mitral regurgitation. 7. Normal LV size, end-diastolic dimension of 5.1. There is severe left ventricular hypertrophy with a posterior and interventricular septal wall thickness of 1.6 and 2.1 cm respectively. Normal LV systolic function. Calculated EF of 68% with normal wall motion. 8. Aortic valve opens well and appears trileaflet. There is mild aortic insufficiency. No evidence of stenosis. 9. Aortic root appears somewhat enlarged with a dimension of 4.2 cm at the sinuses. 10. No pericardial effusion seen. cc: MD Yuniel Alva MD
--- NOTE | 2016-06-27 05:44 | EKG Report ---
Test Performed on : 06/26/2016 06:19:46 AM Test Reason : afib Blood Pressure : / mmHG Vent. Rate : 072 BPM Atrial Rate : 072 BPM P-R Int : 232 ms QRS Dur : 120 ms QT Int : 416 ms P-R-T Axes : 050 -58 108 degrees QTc Int : 455 ms Sinus rhythm. with 1st degree AV block. Left anterior fascicular block Left ventricular hypertrophy with QRS widening and repolarization abnormality Cannot rule out Septal infarct , age undetermined Abnormal ECG When compared with ECG of 25-JUN-2016 06:10, (Unconfirmed) Minimal criteria for Septal infarct are now present Confirmed by Paco MCRAE, Rodríguez Dumas ([id number]) on 06/27/2016 10:56:11 AM
--- NOTE | 2016-06-27 05:48 | EKG Report ---
Test Performed on : 06/25/2016 06:10:07 AM Test Reason : afib Blood Pressure : / mmHG Vent. Rate : 067 BPM Atrial Rate : 067 BPM P-R Int : 244 ms QRS Dur : 138 ms QT Int : 428 ms P-R-T Axes : 057 -65 107 degrees QTc Int : 452 ms Sinus rhythm. with sinus arrhythmia. with 1st degree AV block. Right bundle branch block Left anterior fascicular block Bifascicular block Left ventricular hypertrophy with repolarization abnormality Abnormal ECG When compared with ECG of 24-JUN-2016 10:52, MS interval has increased (RBBB and left anterior fascicular block) is now present Confirmed by Paco MCRAE, Rodríguez Dumas ([id number]) on 06/27/2016 10:55:15 AM
[2016-06-27 07:33] VITALS: BP 139/71
[2016-06-27] MEDS ORDERED: NS 2,000 ML MISC PRN (08:26)
[2016-06-27] MEDS ORDERED: NS 2,000 ML ONE (08:33)
[2016-06-27] MEDS ORDERED: HEPARIN ONE ×2 (08:33→14:29)
[2016-06-27] MEDS ORDERED: CORDARONE PO SCH (09:00)
[2016-06-27] MEDS: FOLIC ACID PO SCH (14:04)
[2016-06-27] MEDS: DECADRON PO SCH (14:04)
[2016-06-27] MEDS: NEURONTIN PO SCH ×2 (14:04→17:09)
[2016-06-27] MEDS: MUCINEX PO SCH (14:04)
--- NOTE | 2016-06-27 19:07 | PROGRESS NOTE ---
DATE: 06/27/2016 SUBJECTIVE: Patient currently undergoing hemodialysis. He continues to have significant edema to the lower extremities. OBJECTIVE: Vital Signs: Temperature 98.4 degrees, pulse 71, respiratory rate 16, blood pressure 139/71, intake 2.1 L. Output not measured. PHYSICAL EXAMINATION: General: Middle-aged gentleman resting in a chair undergoing hemodialysis. No acute distress. HEENT: Normocephalic, atraumatic. Oral mucosa moist. Neck : Supple. Trachea midline. Cardiovascular: Regular rate and rhythm. Pulmonary: Equal excursion. He is clear bilaterally. Abdomen: Soft, positive bowel sounds. : Not inspected. He has hemodialysis. Extremities: 2+ pretibial edema. No clubbing, cyanosis. Skin: Warm and dry. LABORATORY DATA: WBC of 2.1. Hemoglobin 8.7. Sodium 136, potassium 5.3, CO2 23, creatinine 10.5. ASSESSMENT AND PLAN: 1. End-stage renal disease management. We are dialyzing on a 2K bath/UF to dry weight/4-hour treatment. 2. Electrolytes, acid-base balance. Continue to treat with dialysis. 3. Atrial flutter with variable block. He has had a cardioversion. He is on amiodarone followed by primary and Cardiology. 4. Anemia. He is been transfusion-dependent. He does not meet criteria for transfusion. We will continue to monitor and treat as an outpatient. Seen, data reviewed, discussed with Sundeep Blevins on 06/28/16. I agree with the above assessment and plan of care. rg Dictated by CYNDI Marie for Broderick Stern MD cc: Broderick Stern MD [facility]
--- NOTE | 2016-06-28 10:05 | DISCHARGE SUMMARY ---
ADMISSION DATE: 06/22/2016 DISCHARGE DATE: 06/27/2016 CONSULTATIONS: 1. Dr. Arik Maciel with Cardiology. 2. Dr. Broderick Stern with Nephrology. 3. Dr. Castro-with Hematology Oncology. PERTINENT PROCEDURES: 1. Cardioversion performed by Dr. Mak. 2. Echocardiogram showed an EF of 68% with normal wall motion and an RV systolic pressure of 60 suggesting pulmonary hypertension. DISCHARGE DIAGNOSES: 1. Atrial fibrillation flutter with RVR on presentation, status post OUMOU with electrical cardioversion. The patient remains in sinus rhythm. 2. Elevated troponins on admission, secondary to demand ischemia from tachyarrhythmia. 3. Pancytopenia secondary to underlying malignancy with bone marrow infiltration. 4. History of multiple myeloma. 5. Lower extremity weakness secondary to Lumbar radiculopathy . We did get the records from the [place] that did not show anything acute. His steroids were discontinued. We will continue to follow with Dr. Castro. 6. Fluid overload. The patient remains on hemodialysis Monday, , Monday. 7. End-stage renal disease on hemodialysis via fistula in the left forearm. HOSPITAL COURSE: The patient is a 55-year-old, male with a history of multiple myeloma and end stage renal disease on hemodialysis who presented to the ED with chest pain that began while during dialysis. He also reported he had been having some chest discomfort over the past 2-3 months. He reports he had a right and left heart catheterization done in May that did not show anything acute. On the day of his admission during dialysis he had a gradual onset of midsternal cramping involving. There was no radiation, nausea, vomiting, or diaphoresis. He started having palpitations. He was brought into the ED. He was noted to be in a wide complex tachycardia. Probably cardioverted showing an atrial flutter and a 2-1 block. He was placed on a Cardizem drip. His vital signs were stable. He still complained of some mild chest discomfort, but it had much improved from when he 1st came in. The patient was admitted to the ICU for further treatment and evaluation with a consult for Cardiology, as well as anticoagulation therapy. The patient did have elevated cardiac enzymes. However, he just recently underwent a negative heart catheterization, felt it was demand ischemia from the tachyarrhythmia. The patient was continued on his regular hemodialysis schedule. The patient did have worsening anemia. He was status post 2 packs of red blood cells and monitored closely. The patient was continued on Cardizem and amiodarone. He did undergo a cardioversion with Dr. Mak on the where he was successfully cardioverted. The patient has remained in sinus rhythm. He did complain of difficulty moving his lower extremities. He felt this was some sensory deficit suspicious for possible cord lesion from the multiple myeloma. He did recently undergo an MRI. We did get those results. He had been initially placed on Decadron as well as awaiting input from Hematology; however, the results of his most recent MRI did not show anything acute. His MRI just showed degenerative changes and diminished marrow signal that could reflect red marrow recruitment, but other etiologies cannot be excluded. This was from [facility]. The patient has had no acute changes overnight. A CT of his back done here was unremarkable. Again, MRI from [facility] did not show anything acute. He is being discharged home today to continue with his normal hemodialysis schedule. VITAL SIGNS: Temperature is 98.4 degrees, heart rate 58, respirations 18, blood pressure 123/53, O2 is 99% on room air. DISCHARGE DIET: Renal. DISCHARGE MEDICATIONS: As per Dr. Greenfield. 1. Amiodarone 200 mg p.o. daily. 2. Folic acid 1 mg p.o. daily. 3. Neurontin 100 mg p.o. t.i.d. 4. [place] 7.5/325, 1 each p.o. q.4 hours p.r.n. pain. FOLLOWUP: Patient is being discharged home with his to continue his regularly-scheduled hemodialysis. He will follow up with Dr. Maciel as indicated, as well as Dr. Castro, or his regular inspector of weights and measures as instructed. The patient can return to the ED for any worsening of symptoms. DISCHARGE TIME: 30 minutes. Dictated by CYNDI Leyva for Yuniel Greenfield MD cc: Yuniel Greenfield MD Seen and examined patient and patient is medically stable to be discharged. All discharged plans were discussed. SHON
== END 2016-06-27 20:26 | disposition home health service (06) ==
LOC: ED 07:36 → SUATTDRO 11:21 → EDIPHOLD 11:21 → ICU 13:17 → 4N 06-26 17:17 → ICU 06-26 18:00 → 4N 06-26 19:01
PROVIDERS: ATTEND Internal Medicine